=== PATIENT | female | born 1930 | race Caucasian/White ===

== ENCOUNTER 2018-08-27 21:22 | Observation (INO) | payer OTHER, MEDICARE ==
--- NOTE | 2018-08-27 21:26 | PDOC ---
Rapid Medical Evaluation Time Seen by Provider: 08/27/18 21:24 Medical Evaluation: Allergies Allergy/AdvReac Type Severity Reaction Status Date / Time Penicillins Allergy Hives Verified 12/09/14 06:21 08/27/18 21:25 I have performed a brief in-person evaluation of this patient. The patient presents with a chief complaint of: SOB with nausea Pertinent physical exam findings: Scattered wheezes. Pale appearing I have ordered the following: cardiac w/u The patient will proceed to the ED for further evaluation. Discharge Disposition - Diagnosis SOB (shortness of breath) - Referrals - Patient Instructions - Post Discharge Activity
--- NOTE | 2018-08-27 21:57 | PDOC ---
History of Present Illness - General Chief Complaint: Asthma Stated Complaint: ASTHMA SOB Time Seen by Provider: 08/27/18 21:24 - History of Present Illness Initial Comments: 08/27/18 21:57 Ms. Ryan is an 88 yo female w/ pmh of HTN, HLD, asthma, COPD, and Sjogren 's who presents for evaluation of shortness of breath today. Patient reports her asthma has been well controlled for years until the last few months and she has required her rescue inhaler. Patient does not have a breathing machine at home. Patient reports she was short of breath for 2 hours before calling son earlier today and coming to ER for further treatment. Patient is feeling improved at this time following single duoneb. The patient denies chest pain, headache and dizziness. Denies fever, chills, nausea, vomit, diarrhea and constipation. Denies dysuria, frequency, urgency and hematuria. Past History - Past Medical History Allergies/Adverse Reactions: Allergies Allergy/AdvReac Type Severity Reaction Status Date / Time Penicillins Allergy Hives Verified 08/27/18 21:57 Home Medications: Ambulatory Orders Amlodipine Besylate [Norvasc -] 5 mg PO DAILY 12/09/14 Aspirin [ASA -] 81 mg PO DAILY 12/09/14 Lansoprazole [Prevacid -] 30 mg PO DAILY 12/09/14 Levothyroxine [Synthroid -] 100 mcg PO DAILY 12/09/14 Lisinopril [Prinivil] 20 mg PO DAILY 12/09/14 Nebivolol [Bystolic -] 10 mg PO DAILY 12/09/14 Paroxetine HCl [Paxil -] 10 mg PO DAILY 12/09/14 levoFLOXacin [Levaquin -] 250 mg PO DAILY #4 tablet 12/11/14 Anemia: Yes Asthma: Yes Cancer: No Cardiac Disorders: Yes CVA: No COPD: Yes CHF: No Dementia: No Diabetes: No GI Disorders: No HTN: Yes Hypercholesterolemia: Yes Seizures: No Thyroid Disease: Yes - Surgical History Abdominal Surgery: Yes (hernia repair) - Suicide/Smoking/Psychosocial Hx Smoking Status: No Smoking History: Never smoked Have you smoked in the past 12 months: No Number of Cigarettes Smoked Daily: 0 Information on smoking cessation initiated: No Hx Alcohol Use: No Drug/Substance Use Hx: No Substance Use Type: None Review of Systems - Review of Systems Comments:: 08/27/18 21:58 GENERAL/CONSTITUTIONAL: No fever or chills. No weakness. HEAD, EYES, EARS, NOSE AND THROAT: No change in vision. No ear pain or discharge. No sore throat. CARDIOVASCULAR: No chest pain RESPIRATORY: +Shortness of breath as described. No cough, wheezing, or hemoptysis. GASTROINTESTINAL: No nausea, vomiting, diarrhea or constipation. GENITOURINARY: No dysuria, frequency, or change in urination. MUSCULOSKELETAL: No joint or muscle swelling or pain. No neck or back pain. SKIN: No rash NEUROLOGIC: No headache, vertigo, loss of consciousness, or change in strength/ sensation. ENDOCRINE: No increased thirst. No abnormal weight change HEMATOLOGIC/LYMPHATIC: No anemia, easy bleeding, or history of blood clots. ALLERGIC/IMMUNOLOGIC: No hives or skin allergy. *Physical Exam - Vital Signs Last Vital Signs Temp Pulse Resp BP Pulse Ox 98.5 F 110 H 27 H 159/92 89 L 08/27/18 21:22 08/27/18 21:22 08/27/18 21:22 08/27/18 21:22 08/27/18 21:22 - Physical Exam Comments: 08/27/18 21:59 GENERAL: Awake, alert, and fully oriented, in no acute distress HEAD: No signs of trauma, normocephalic, atraumatic EYES: PERRLA, EOMI, sclera anicteric, conjunctiva clear ENT: Auricles normal inspection, hearing grossly normal, nares patent, oropharynx clear without exudates. Moist mucosa NECK: Normal ROM, supple, no lymphadenopathy, JVD, or masses LUNGS: +Patient receiving duoneb treatment. Diffuse wheezes appreciated throughout lung mondragon. No distress, speaks full sentences HEART: Regular rate and rhythm, normal S1 and S2, no murmurs, rubs or gallops, peripheral pulses normal and equal bilaterally. ABDOMEN: Soft, nontender, normoactive bowel sounds. No guarding, no rebound. No masses EXTREMITIES: Normal inspection, Normal range of motion, no edema. No clubbing or cyanosis. NEUROLOGICAL: Cranial nerves II through XII grossly intact. Normal speech, normal gait, no focal sensorimotor deficits SKIN: Warm, Dry, normal turgor, no rashes or lesions noted. ED Treatment Course - LABORATORY CBC & Chemistry Diagram: 08/27/18 22:31 08/27/18 22:31 Medical Decision Making - Medical Decision Making 08/27/18 23:29 Ms. Ryan is an 88 yo female w/ pmh as described who presents for evaluation of shortness of breath. Patient does not have nebulizer at home. Improved at this time. Workup as below grossly wnl. CXR negative. EKG negative. Patient will be observed overnight in hospital. Laboratory Results - last 24 hr 08/27/18 08/27/18 08/27/18 22:31 22:31 22:31 WBC 6.3 RBC 3.40 L Hgb 11.2 Hct 33.0 MCV 97.2 H MCH 33.1 MCHC 34.0 RDW 13.1 Plt Count 123 L D MPV 9.4 Absolute Neuts (auto) 4.6 Neutrophils % 73.8 D Lymphocytes % 10.7 D Monocytes % 7.8 Eosinophils % 7.5 H Basophils % 0.2 Nucleated RBC % 0 PT with INR 11.90 INR 1.01 Sodium 139 Potassium 4.8 Chloride 104 Carbon Dioxide 30 Anion Gap 5 L BUN 20 H Creatinine 0.7 Creat Clearance w eGFR 78.79 Random Glucose 137 H Lactic Acid Calcium 8.4 L Magnesium 2.2 Total Bilirubin 0.4 AST 25 ALT 23 Alkaline Phosphatase 108 Creatine Kinase 73 Troponin I < 0.02 Total Protein 7.4 Albumin 3.4 08/27/18 22:31 WBC RBC Hgb Hct MCV MCH MCHC RDW Plt Count MPV Absolute Neuts (auto) Neutrophils % Lymphocytes % Monocytes % Eosinophils % Basophils % Nucleated RBC % PT with INR INR Sodium Potassium Chloride Carbon Dioxide Anion Gap BUN Creatinine Creat Clearance w eGFR Random Glucose Lactic Acid 1.3 Calcium Magnesium Total Bilirubin AST ALT Alkaline Phosphatase Creatine Kinase Troponin I Total Protein Albumin *DC/Admit/Observation/Transfer Diagnosis at time of Disposition: SOB (shortness of breath) Asthma exacerbation Qualifiers: Asthma severity: unspecified severity Asthma persistence: unspecified Qualified Code(s): J45.901 - Unspecified asthma with (acute) exacerbation - Discharge Dispostion Condition at time of disposition: Guarded Decision to Admit order: Yes - Referrals Referrals: Julita Sewell MD [Primary Care Provider] - - Patient Instructions - Post Discharge Activity
[2018-08-27] MEDS ORDERED: ALBUTEROL SO4 2.5/IPRATROPIUM 0.5 INH SOL 3 ML VIAL.NEB. NEB ONE ×3 (22:12→23:43)
[2018-08-27 22:43] LABS: BASO % 0.2 % (0-2.0); EOS % 7.5 % (0-4.5); HEMOGLOBIN 11.2 GM/dL (10.7-15.3); LYMPH % 10.7 % (8-40); MCH 33.1 pg (25.7-33.7); MEAN CELL VOLUME 97.2 fl (80-96); MEAN PLT VOLUME 9.4 fl (7.5-11.1); MONO % 7.8 % (3.8-10.2); NEUT % 73.8 % (42.8-82.8); PLATELET COUNT 123 K/MM3 (134-434); RDW 13.1 % (11.6-15.6); WHITE BLOOD COUNT 6.3 K/mm3 (4.0-10.0)
[2018-08-27 22:56] LABS: INR 1.01 (0.83-1.09); PROTHROMBIN TIME (PATIENT) 11.9 SEC (9.7-13.0)
[2018-08-27 23:05] LABS: ALBUMIN 3.4 g/dl (3.4-5.0); ALK PHOS 108 U/L (45-117); ANION GAP 5 MMOL/L (8-16); BILIRUBIN,TOTAL 0.4 mg/dL (0.2-1); BLOOD UREA NITROGEN 20 mg/dL (7-18); CALCIUM 8.4 mg/dL (8.5-10.1); CHLORIDE 104 mmol/L (98-107); CO2 30 mmol/L (21-32); CREATININE 0.7 mg/dL (0.55-1.3); GLUCOSE,RANDOM 137 mg/dL (74-106); MAGNESIUM 2.2 mg/dL (1.8-2.4); POTASSIUM 4.8 mmol/L (3.5-5.1); SGOT/AST 25 U/L (15-37); SGPT/ALT 23 U/L (13-61); SODIUM 139 mmol/L (136-145); TOT PROT 7.4 g/dl (6.4-8.2)
--- NOTE | 2018-08-27 23:30 | PDOC ---
Attending Attestation - Resident Resident Name: Lefty Avilaorn - ED Attending Attestation I have performed the following: I have examined & evaluated the patient, The case was reviewed & discussed with the resident, I agree w/resident's findings & plan, Exceptions are as noted - HPI HPI: 08/27/18 23:30 88-year-old female presents with expiratory wheezing and increased work of breathing. She has a history of asthma - Physicial Exam PE: 08/27/18 23:30 Cachectic 88-year-old female was receiving a DuoNeb treatment who has increased use of resp muscles Head normocephalic/atraumatic. Neck supple Lungs scattered expiratory wheezing in all lung mondragon cvs rrr s1s2 abd flat,nontender extremities no edema no cva tenderness skin warm and dry neuro axox3,moving all extremities psych sl anxious - Medical Decision Making 08/27/18 23:39 pt arrived with decreased breath sounds,diffuse scattered wheezing and , increased work of breathing cxr increased perihilar lung markings labd are unremarkab;e imp asthma exacerbation/needs supplemental o2/resp treatments admit med/surg 08/27/18 23:42
[2018-08-27] MEDS ORDERED: methylPREDNISolone NA SUCC 125 MG/2 ML VIAL IVPUSH SCH (23:45)
[2018-08-27] MEDS ORDERED: methylPREDNISolone NA SUCC 125 MG/2 ML VIAL IVPB ONE (23:49)
--- NOTE | 2018-08-27 23:56 | HP ---
CHIEF COMPLAINT: shortness of breath and scattered expiratory wheezing PCP:Dr.Pushpinder Sewell HISTORY OF PRESENT ILLNESS: 88 year old female with history of hypertension(on medications), hyperlipidemia , Sjogren's syndrome, hypothyroidism and asthma(reported no recent acute asthma exacerbations or hospitalizations over the past several years however worsening shortness of breath over the past few days and has been using rescue inhaler at home) who presented with shortness of breath and expiratory wheezing. On arrival pulse rate was 110 and oxygen saturation 89% which has improved after administration of duo nebulizers.CXR showed increased perihilar lung markings. On my clinical examination she continued to have expiratory wheezing and she was given one dosage of IV solumedrol and duonebulizer . Oxygen saturation has improved and ranging between 97-100% on oxygen therapy 2 L nc and heart rate is in the 90's. She reports she is moderately active at home and she denies recent travel. She denies fever, chest pain ,hemoptysis, leg swelling,weight gain or orthopnea. She is being admitted to observation for monitoring. Recent Travel: denies PAST MEDICAL HISTORY: hypertension hyperlipidemia hypothyroidism Sjogren's syndrome asthma PAST SURGICAL HISTORY: denies Social History: Smoking:denies Alcohol:denies Drugs: denies Family History: noncontributory Allergies Penicillins Allergy (Verified 08/27/18 21:57) Hives HOME MEDICATIONS: Home Medications Medication Instructions Recorded Amlodipine Besylate [Norvasc -] 5 mg PO DAILY 12/09/14 Aspirin [ASA -] 81 mg PO DAILY 12/09/14 Lansoprazole [Prevacid -] 30 mg PO DAILY 12/09/14 Levothyroxine [Synthroid -] 100 mcg PO DAILY 12/09/14 Lisinopril [Prinivil] 20 mg PO DAILY 12/09/14 Nebivolol [Bystolic -] 10 mg PO DAILY 12/09/14 Paroxetine HCl [Paxil -] 10 mg PO DAILY 12/09/14 levoFLOXacin [Levaquin -] 250 mg PO DAILY #4 tablet 12/11/14 REVIEW OF SYSTEMS CONSTITUTIONAL: Absent: fever, chills, diaphoresis, generalized weakness, malaise, loss of appetite, weight change HEENT: Absent: rhinorrhea, nasal congestion, throat pain, throat swelling, difficulty swallowing, mouth swelling, ear pain, eye pain, visual changes CARDIOVASCULAR: Absent: chest pain, syncope, palpitations, irregular heart rate, lightheadedness , peripheral edema RESPIRATORY: Absent: cough, shortness of breath, dyspnea with exertion, orthopnea, wheezing, stridor, hemoptysis GASTROINTESTINAL: Absent: abdominal pain, abdominal distension, nausea, vomiting, diarrhea, constipation, melena, hematochezia GENITOURINARY: Absent: dysuria, frequency, urgency, hesitancy, hematuria, flank pain, genital pain MUSCULOSKELETAL: Absent: myalgia, arthralgia, joint swelling, back pain, neck pain SKIN: Absent: rash, itching, pallor HEMATOLOGIC/IMMUNOLOGIC: Absent: easy bleeding, easy bruising, lymphadenopathy, frequent infections ENDOCRINE: Absent: unexplained weight gain, unexplained weight loss, heat intolerance, cold intolerance NEUROLOGIC: Absent: headache, focal weakness or paresthesias, dizziness, unsteady gait, seizure, mental status changes, bladder or bowel incontinence PSYCHIATRIC: Absent: anxiety, depression, suicidal or homicidal ideation, hallucinations. PHYSICAL EXAMINATION Vital Signs - 24 hr 08/27/18 21:22 Temperature 98.5 F Pulse Rate 110 H Respiratory 27 H Rate Blood Pressure 159/92 O2 Sat by Pulse 89 L Oximetry (%) GENERAL: awake, alert, and fully oriented HEAD: normal EYES: pupils equal, round and reactive to light EARS, NOSE, THROAT: ears normal, nares patent NECK: normal range of motion, supple LUNGS: +wheezing to auscultation no accessory muscle use nonlabored breathing effort HEART: regular rate and rhythm normal S1 and S2 ABDOMEN: soft, nontender not distended normoactive bowel sounds MUSCULOSKELETAL: normal range of motion at all joints no bony deformities or tenderness UPPER EXTREMITIES: 2+ pulses warm well-perfused nail beds pink with good cap refill LOWER EXTREMITIES: 2+ pulses warm well-perfused no pitting edema NEUROLOGICAL: normal speech PSYCHIATRIC: cooperative good eye contact SKIN: warm dry good skin turgor no rashes or lesions present nail beds and lips pink w/good cap refill 08/27/18 08/27/18 08/27/18 22:31 22:31 22:31 WBC 6.3 RBC 3.40 L Hgb 11.2 Hct 33.0 MCV 97.2 H MCH 33.1 MCHC 34.0 RDW 13.1 Plt Count 123 L D MPV 9.4 Absolute Neuts (auto) 4.6 Neutrophils % 73.8 D Lymphocytes % 10.7 D Monocytes % 7.8 Eosinophils % 7.5 H Basophils % 0.2 Nucleated RBC % 0 PT with INR 11.90 INR 1.01 Sodium 139 Potassium 4.8 Chloride 104 Carbon Dioxide 30 Anion Gap 5 L BUN 20 H Creatinine 0.7 Creat Clearance w eGFR 78.79 Random Glucose 137 H Lactic Acid Calcium 8.4 L Magnesium 2.2 Total Bilirubin 0.4 AST 25 ALT 23 Alkaline Phosphatase 108 Creatine Kinase 73 Troponin I < 0.02 Total Protein 7.4 Albumin 3.4 08/27/18 22:31 WBC RBC Hgb Hct MCV MCH MCHC RDW Plt Count MPV Absolute Neuts (auto) Neutrophils % Lymphocytes % Monocytes % Eosinophils % Basophils % Nucleated RBC % PT with INR INR Sodium Potassium Chloride Carbon Dioxide Anion Gap BUN Creatinine Creat Clearance w eGFR Random Glucose Lactic Acid 1.3 Calcium Magnesium Total Bilirubin AST ALT Alkaline Phosphatase Creatine Kinase Troponin I Total Protein Albumin ASSESSMENT/PLAN: Mrs. Ryan is an 88 year old female with history of hypertension(on medications), hyperlipidemia, hypothyroidism, Sjogren's syndrome and asthma who has been taking rescue inhalers at home due to shortness of breath lately however no acute asthma exacerbations for several years as per her family. She presented with symptoms of shortness of breath and wheezing and findings consistent with an acute asthma exacerbation. #1 Acute Asthma Exacerbation Initially she was tachycardic and hypoxic on presentation, improved with duo neb and IV methylprednisolone. Oxygen saturations now between 97-100% on 2 L by nc and heart rates 90's. No evidence of leukocytosis, afebrile. CXR with no infiltrate or pleural effusion. She is euvolemic on exam. Troponin, hgb/hct are wnl. Continue with albuterol nebulizer treatments every 6 hours. Continue with IV methyprednisolone . If develops tachycardia/hypoxemia would exclude PE. Will check D-Dimer. Pulmonary consulted -Dr. iRce. #2 Hypertension Borderline elevated. Continue with bystolic,lisinopril amd amlodipine. No signs of congestive heart failure on clinical exam. #3 Hx Hyperlipidemia Not on statin therapy on review of home medical regimen. #4 Hypothyroidism Continue synthroid. DVT Prophylaxsis Added lovenox 30 mg once daily for DVT prophylaxsis. FEN low sodium diet Visit type - Emergency Visit Emergency Visit: Yes ED Registration Date: 08/27/18 Care time: The patient presented to the Emergency Department on the above date and was hospitalized for further evaluation of their emergent condition. - New Patient This patient is new to me today: Yes Date on this admission: 08/28/18 - Critical Care Critical Care patient: No
[2018-08-28] MEDS ORDERED: methylPREDNISolone NA SUCC 125 MG/2 ML VIAL ONE (00:04)
[2018-08-28 05:30] LABS: HEMOGLOBIN 11.2 GM/dL (10.7-15.3); MCH 32.7 pg (25.7-33.7); MEAN CELL VOLUME 96.1 fl (80-96); MEAN PLT VOLUME 9.2 fl (7.5-11.1); PLATELET COUNT 115 K/MM3 (134-434); RBC 3.43 M/mm3 (3.60-5.2); RDW 13.2 % (11.6-15.6); WHITE BLOOD COUNT 4.3 K/mm3 (4.0-10.0)
[2018-08-28 05:55] LABS: ANION GAP 4 MMOL/L (8-16); BLOOD UREA NITROGEN 20 mg/dL (7-18); CALCIUM 8.4 mg/dL (8.5-10.1); CHLORIDE 104 mmol/L (98-107); CO2 29 mmol/L (21-32); CREATININE 0.7 mg/dL (0.55-1.3); GLUCOSE,RANDOM 147 mg/dL (74-106); SODIUM 136 mmol/L (136-145)
[2018-08-28] MEDS: LEVOTHYROXINE NA 100 MCG TABLET (FP) PO SCH (07:19)
[2018-08-28] MEDS: ALBUTEROL SO4 0.083% IH SOL 2.5 MG/3 ML VIAL.NEB. NEB SCH ×2 (07:50→11:40)
[2018-08-28] MEDS ORDERED: PT OWN MED DRAWER 7, Y5N ONE ×2 (09:05→15:20)
[2018-08-28] MEDS: ENOXAPARIN NA (PORCINE) 30 MG/0.3 ML DISP.SYRIN SQ SCH (09:16)
[2018-08-28] MEDS: ASPIRIN 81 MG CHEWABLE TABLETS PO SCH (09:16)
[2018-08-28] MEDS: PARoxetine HCL 10 MG TABLET (FP) PO SCH (09:16)
[2018-08-28] MEDS: amLODIPine BESYLATE 5 MG TABLET (FP) PO SCH (09:16)
[2018-08-28] MEDS: PANTOPRAZOLE 40 MG TABLET (FP) PO SCH (09:16)
[2018-08-28] MEDS ORDERED: methylPREDNISolone NA SUCC 40 MG/1 ML VIAL IVPUSH SCH (10:00)
--- NOTE | 2018-08-28 10:32 | PN ---
Progress Note (short form) - Note Progress Note: no distress Feels better No chest pain , dizziness No SOB Coughing+ Vital Signs - 24 hr 08/27/18 08/27/18 08/28/18 21:22 22:38 00:14 Temperature 98.5 F Pulse Rate 110 H Pulse Rate [ 96 H Apical] Respiratory 27 H 17 Rate Blood Pressure 159/92 Blood Pressure 148/69 [Right Arm] O2 Sat by Pulse 89 L 97 98 Oximetry (%) 08/28/18 04:23 Temperature Pulse Rate Pulse Rate [ 99 H Apical] Respiratory 17 Rate Blood Pressure Blood Pressure 158/82 [Right Arm] O2 Sat by Pulse 97 Oximetry (%) Current Medications Generic Name Dose Route Start Last Admin Trade Name Freq PRN Reason Stop Dose Admin Albuterol Sulfate 1 amp 08/28/18 08:00 Ventolin 0.083% Nebulizer Soln - NEB RQID STEPHANIE Amlodipine Besylate 5 mg 08/28/18 10:00 08/28/18 09:16 Norvasc - PO 5 mg DAILY STEPHANIE Administration Aspirin 81 mg 08/28/18 10:00 08/28/18 09:16 Asa - PO 81 mg DAILY STEPHANIE Administration Enoxaparin Sodium 30 mg 08/28/18 10:00 08/28/18 09:16 Lovenox - SQ 30 mg DAILY STEPHANIE Administration Levothyroxine Sodium 100 mcg 08/28/18 07:00 08/28/18 07:19 Synthroid - PO 100 mcg DAILY@0700 STEPHANIE Administration Methylprednisolone Sodium Succinate 40 mg 08/28/18 10:00 08/28/18 09:16 Solu-Medrol - IVPUSH 40 mg DAILY STEPHANIE Administration Nebivolol 10 mg 08/28/18 10:00 Bystolic - PO DAILY STEPHANIE Pantoprazole Sodium 40 mg 08/28/18 10:00 08/28/18 09:16 Protonix - PO 40 mg DAILY STEPHANIE Administration Paroxetine HCl 10 mg 08/28/18 10:00 08/28/18 09:16 Paxil - PO 10 mg DAILY STEPHANIE Administration Laboratory Results - last 24 hr 08/27/18 08/27/18 08/27/18 22:31 22:31 22:31 WBC 6.3 RBC 3.40 L Hgb 11.2 Hct 33.0 MCV 97.2 H MCH 33.1 MCHC 34.0 RDW 13.1 Plt Count 123 L D MPV 9.4 Absolute Neuts (auto) 4.6 Neutrophils % 73.8 D Lymphocytes % 10.7 D Monocytes % 7.8 Eosinophils % 7.5 H Basophils % 0.2 Nucleated RBC % 0 PT with INR 11.90 INR 1.01 D-Dimer Sodium 139 Potassium 4.8 Chloride 104 Carbon Dioxide 30 Anion Gap 5 L BUN 20 H Creatinine 0.7 Creat Clearance w eGFR 78.79 Random Glucose 137 H Lactic Acid Calcium 8.4 L Magnesium 2.2 Total Bilirubin 0.4 AST 25 ALT 23 Alkaline Phosphatase 108 Creatine Kinase 73 Troponin I < 0.02 Total Protein 7.4 Albumin 3.4 08/27/18 08/28/18 08/28/18 22:31 05:15 05:15 WBC 4.3 RBC 3.43 L Hgb 11.2 Hct 33.0 MCV 96.1 H MCH 32.7 MCHC 34.0 RDW 13.2 Plt Count 115 L MPV 9.2 Absolute Neuts (auto) Neutrophils % Lymphocytes % Monocytes % Eosinophils % Basophils % Nucleated RBC % PT with INR INR D-Dimer Sodium 136 Potassium 4.0 Chloride 104 Carbon Dioxide 29 Anion Gap 4 L BUN 20 H Creatinine 0.7 Creat Clearance w eGFR 78.79 Random Glucose 147 H Lactic Acid 1.3 Calcium 8.4 L Magnesium Total Bilirubin AST ALT Alkaline Phosphatase Creatine Kinase Troponin I Total Protein Albumin 08/28/18 05:15 WBC RBC Hgb Hct MCV MCH MCHC RDW Plt Count MPV Absolute Neuts (auto) Neutrophils % Lymphocytes % Monocytes % Eosinophils % Basophils % Nucleated RBC % PT with INR INR D-Dimer 992 H Sodium Potassium Chloride Carbon Dioxide Anion Gap BUN Creatinine Creat Clearance w eGFR Random Glucose Lactic Acid Calcium Magnesium Total Bilirubin AST ALT Alkaline Phosphatase Creatine Kinase Troponin I Total Protein Albumin S1 S2 RRR Lungs scattere ronchi B/L Abd -soft, Nt no edema PLAN continue with solumedrol Nebs Check pre and post O2 sat ambulation continue with meds Problem List - Problems (1) Asthma exacerbation Code(s): J45.901 - UNSPECIFIED ASTHMA WITH (ACUTE) EXACERBATION Qualifiers: Asthma severity: unspecified severity Asthma persistence: unspecified Qualified Code(s): J45.901 - Unspecified asthma with (acute) exacerbation (2) SOB (shortness of breath) Code(s): R06.02 - SHORTNESS OF BREATH (3) Bronchitis Code(s): J40 - BRONCHITIS, NOT SPECIFIED ACUTE OR CHRONIC (4) Cough Code(s): R05 - COUGH
--- NOTE | 2018-08-28 11:05 | EKG ---
Test Reason : Blood Pressure : / mmHG Vent. Rate : 105 BPM Atrial Rate : 105 BPM P-R Int : 196 ms QRS Dur : 070 ms QT Int : 316 ms P-R-T Axes : 086 036 058 degrees QTc Int : 417 ms POOR DATA QUALITY, INTERPRETATION MAY BE ADVERSELY AFFECTED SINUS TACHYCARDIA SEPTAL INFARCT (CITED ON OR BEFORE 10-APR-2012) ABNORMAL ECG WHEN COMPARED WITH ECG OF 09-DEC-2014 06:25, VENT. RATE HAS INCREASED BY 35 BPM Confirmed by LEANN SELLERS, AMBERLY ([id number]) on 08/28/2018 11:04:31 AM Referred By: Confirmed By:AMBERLY NORIEGA MD
--- NOTE | 2018-08-28 15:41 | CON.PULM ---
Consult Consult Specialty:: PULMONARY Referred by:: Dr Chaidez Reason for Consultation:: shortness of breath - History of Present Illness Chief Complaint: shortness of breath History of Present Illness: 88yo female with h/o HTN, hyperlipidemia, asthma, hypothyroidism, Sjogren's syndrome who was admitted with acute shortness of breath and wheezing. Denies chest pain or palpitations. No fevers, chills or sweats. Noted to hypoxic to 89 % on room air improved after nebulizer treatments and oxygen therapy. She is a never smoker, did have 2nd hand smoke exposure as a child. No occupational exposures. Maintained at home on ventolin as needed and she states that she feels improvement with the bronchodilators. - History Source History Provided By: Patient, Medical Record Limitations to Obtaining History: No Limitations - Past Medical History Cardio/Vascular: Yes: HTN, Hyperlipdemia Pulmonary: Yes: Asthma, COPD, Other (Schogren's) ...: No Psych: Yes: Anxiety - Alcohol/Substance Use Hx Alcohol Use: No - Smoking History Smoking history: Never smoked Have you smoked in the past 12 months: No Aproximately how many cigarettes per day: 0 Home Medications - Allergies Allergies/Adverse Reactions: Allergies Allergy/AdvReac Type Severity Reaction Status Date / Time Penicillins Allergy Hives Verified 08/27/18 21:57 - Home Medications Home Medications: Ambulatory Orders Amlodipine Besylate [Norvasc -] 5 mg PO DAILY 12/09/14 Aspirin [ASA -] 81 mg PO DAILY 12/09/14 Levothyroxine [Synthroid -] 100 mcg PO DAILY 12/09/14 Nebivolol [Bystolic -] 10 mg PO DAILY 12/09/14 Paroxetine HCl [Paxil -] 10 mg PO DAILY 12/09/14 Amlodipine Besylate 5 mg PO DAILY 02/20/16 Aspirin [ASA -] 81 mg PO DAILY 02/20/16 Lansoprazole [Prevacid] 30 mg PO DAILY 02/20/16 Levothyroxine [Synthroid -] 100 mcg PO DAILY 02/20/16 Lisinopril [Prinivil] 20 mg PO DAILY 02/20/16 Nebivolol [Bystolic -] 10 mg PO DAILY 02/20/16 Paroxetine HCl 40 mg PO DAILY 02/20/16 Simvastatin 20 mg PO DAILY 02/20/16 Pantoprazole Sodium [Protonix -] 40 mg PO DAILY 08/28/18 Review of Systems - Review of Systems Constitutional: denies: Chills, Fever, Weakness Eyes: denies: Recent Change in Vision HENT: denies: Nasal Congestion, Throat Pain Neck: denies: Stiffness, Tenderness Cardiovascular: reports: Shortness of Breath. denies: Chest Pain, Edema, Palpitations Respiratory: reports: Cough, SOB on Exertion, Wheezing. denies: Hemoptysis Gastrointestinal: denies: Abdominal Pain, Nausea, Vomiting Genitourinary: denies: Dysuria, Hematuria Neurological: denies: Dizziness, Headache Endocrine: denies: Unexplained Weight Loss Physical Exam Vital Sings: Vital Signs Temperature 98.8 F 08/28/18 08:48 Pulse Rate 101 H 08/28/18 13:18 Respiratory Rate 20 08/28/18 08:48 Blood Pressure 144/81 08/28/18 08:48 O2 Sat by Pulse Oximetry (%) 90 L 08/28/18 13:18 Constitutional: Yes: Calm Eyes: Yes: Conjunctiva Clear, EOM Intact HENT: Yes: Atraumatic, Normocephalic Neck: Yes: Supple, Trachea Midline Cardiovascular: Yes: Regular Rate and Rhythm Respiratory: Yes: Diminished (distant breath sounds), Wheezes (scattered) ...Clubbing: No Gastrointestinal: Yes: Normal Bowel Sounds, Soft. No: Tenderness Edema: No Neurological: Yes: Alert, Oriented Labs: CBC, BMP 08/28/18 05:15 08/28/18 05:15 Imaging - Results Chest X-ray: Report Reviewed, Image Reviewed (hyperinflated lungs) Problem List - Problems (1) COPD with acute exacerbation Code(s): J44.1 - CHRONIC OBSTRUCTIVE PULMONARY DISEASE W (ACUTE) EXACERBATION (2) Hypoxia Code(s): R09.02 - HYPOXEMIA Assessment/Plan Acute COPD Exacerbation Hypoxia from above HTN Hyperlipidemia Hypothyroidism Sjogren's Syndrome - short course of medrol - inhaled bronchodilators - O2 to keep SpO2 >90% - start symbicort - will need outpt PFTs - when ready for discharge, would keep on symbicort and add spiriva as outpt - DVT prophylaxis Thank you for this consult Lencho Benito MD
[2018-08-28] MEDS ORDERED: ALBUTEROL SO4 0.083% IH SOL 2.5 MG/3 ML VIAL.NEB. NEB PRN (15:42)
[2018-08-28] MEDS: NEBIVOLOL 10 MG TABLET (FP) PO SCH (15:45)
[2018-08-28] MEDS: ALBUTEROL SO4 2.5/IPRATROPIUM 0.5 INH SOL 3 ML VIAL.NEB. NEB SCH ×2 (16:23→20:16)
[2018-08-28 17:05] VITALS: BMI 13.6
[2018-08-28] MEDS: methylPREDNISolone NA SUCC 40 MG/1 ML VIAL IVPUSH SCH (17:46)
[2018-08-28] MEDS: BUDESONIDE/FORMETEROL FUMARATE 160/4.5 mcg INHALER IH SCH (21:23)
[2018-08-29] MEDS: methylPREDNISolone NA SUCC 40 MG/1 ML VIAL IVPUSH SCH ×2 (03:01→12:00)
[2018-08-29] MEDS: LEVOTHYROXINE NA 100 MCG TABLET (FP) PO SCH (06:32)
[2018-08-29] MEDS: ALBUTEROL SO4 2.5/IPRATROPIUM 0.5 INH SOL 3 ML VIAL.NEB. NEB SCH ×2 (07:42→11:21)
[2018-08-29] MEDS: ASPIRIN 81 MG CHEWABLE TABLETS PO SCH (09:18)
[2018-08-29] MEDS: PANTOPRAZOLE 40 MG TABLET (FP) PO SCH (09:18)
[2018-08-29] MEDS: NEBIVOLOL 10 MG TABLET (FP) PO SCH (09:18)
[2018-08-29] MEDS: amLODIPine BESYLATE 5 MG TABLET (FP) PO SCH (09:18)
[2018-08-29] MEDS: PARoxetine HCL 10 MG TABLET (FP) PO SCH (09:18)
[2018-08-29] MEDS: ENOXAPARIN NA (PORCINE) 30 MG/0.3 ML DISP.SYRIN SQ SCH (09:19)
[2018-08-29 09:23] VITALS: BP 136/63; TEMP 98.8
--- NOTE | 2018-08-29 10:23 | PN ---
Progress Note (short form) - Note Progress Note: PULMONARY Denies shortness of breath, cough or wheezing. States she feels at baseline. Vital Signs Period Temp Pulse Resp BP Sys/Obrien Pulse Ox Last 24 Hr 98.2 F-98.8 F 73-108 18-20 109-152/50-75 90 Gen: NAD at rest Heart: RRR Lung: scattered wheezes Abd: soft, nontender Ext: no edema CBC, BMP 08/28/18 05:15 08/28/18 05:15 Active Medications Albuterol Sulfate (Ventolin 0.083% Nebulizer Soln -) 1 amp NEB Q4H PRN PRN Reason: SHORT OF BREATH/WHEEZING Albuterol/Ipratropium (Duoneb -) 1 amp NEB RQID [facility] Last Admin: 08/29/18 07:42 Dose: 1 amp Amlodipine Besylate (Norvasc -) 5 mg PO DAILY [facility] Last Admin: 08/29/18 09:18 Dose: 5 mg Aspirin (Asa -) 81 mg PO DAILY [facility] Last Admin: 08/29/18 09:18 Dose: 81 mg Budesonide/Formoterol Fumarate (Symbicort 160/4.5mcg -) 2 puff IH BID [facility] Last Admin: 08/28/18 21:23 Dose: 2 puff Enoxaparin Sodium (Lovenox -) 30 mg SQ DAILY [facility] Last Admin: 08/29/18 09:19 Dose: 30 mg Levothyroxine Sodium (Synthroid -) 100 mcg PO DAILY@0700 [facility] Last Admin: 08/29/18 06:32 Dose: 100 mcg Methylprednisolone Sodium Succinate (Solu-Medrol -) 40 mg IVPUSH Q8H-IV [facility] Last Admin: 08/29/18 03:01 Dose: 40 mg Nebivolol (Bystolic -) 10 mg PO DAILY [facility] Last Admin: 08/29/18 09:18 Dose: 10 mg Pantoprazole Sodium (Protonix -) 40 mg PO DAILY [facility] Last Admin: 08/29/18 09:18 Dose: 40 mg Paroxetine HCl (Paxil -) 10 mg PO DAILY [facility] Last Admin: 08/29/18 09:18 Dose: 10 mg A/P Acute COPD Exacerbation Hypoxia from above HTN Hyperlipidemia Hypothyroidism Sjogren's Syndrome - can change steroids to PO prednisone 40mg daily and taper as outpt - inhaled bronchodilators - O2 to keep SpO2 >90% - would discharge on Symbicort and Spiriva until seen as outpt - will need outpt PFTs - DVT prophylaxis - recheck ambulatory SpO2 - can discharge home from pulmonary standpoint Problem List - Problems (1) COPD with acute exacerbation Code(s): J44.1 - CHRONIC OBSTRUCTIVE PULMONARY DISEASE W (ACUTE) EXACERBATION (2) Hypoxia Code(s): R09.02 - HYPOXEMIA
[2018-08-29 11:21] VITALS: PULSE 112
[2018-08-29] MEDS: BUDESONIDE/FORMETEROL FUMARATE 160/4.5 mcg INHALER IH SCH (12:00)
--- NOTE | 2018-08-29 12:04 | DS ---
Physical Examination Vital Signs: Vital Signs Temperature 98.8 F 08/29/18 09:22 Pulse Rate 112 H 08/29/18 11:20 Respiratory Rate 20 08/29/18 09:22 Blood Pressure 136/63 08/29/18 09:22 O2 Sat by Pulse Oximetry (%) 93 L 08/29/18 11:20 Constitutional: Yes: No Distress, Calm Cardiovascular: Yes: Regular Rate and Rhythm Respiratory: Yes: CTA Bilaterally Gastrointestinal: Yes: Normal Bowel Sounds, Soft. No: Tenderness Edema: No Labs: CBC, BMP 08/28/18 05:15 08/28/18 05:15 Discharge Summary Reason For Visit: EXACERBATION OF ASTHMA, SOB Current Active Problems Asthma exacerbation (Acute) COPD with acute exacerbation (Acute) Hypoxia (Acute) SOB (shortness of breath) (Acute) Hospital Course: Admitted for asthma exacerbation Pt was on IV Solumedrol , nebs Now better Seen by Pulmonary -- stable for dc home on po prednisone follow up with PMD in 2 weeks Condition: Improved - Instructions Disposition: HOME - Home Medications Comprehensive Discharge Medication List: Ambulatory Orders Amlodipine Besylate [Norvasc -] 5 mg PO DAILY 12/09/14 Aspirin [ASA -] 81 mg PO DAILY 12/09/14 Levothyroxine [Synthroid -] 100 mcg PO DAILY 12/09/14 Nebivolol [Bystolic -] 10 mg PO DAILY 12/09/14 Paroxetine HCl [Paxil -] 10 mg PO DAILY 12/09/14 Amlodipine Besylate 5 mg PO DAILY 02/20/16 Aspirin [ASA -] 81 mg PO DAILY 02/20/16 Lansoprazole [Prevacid] 30 mg PO DAILY 02/20/16 Levothyroxine [Synthroid -] 100 mcg PO DAILY 02/20/16 Lisinopril [Prinivil] 20 mg PO DAILY 02/20/16 Nebivolol [Bystolic -] 10 mg PO DAILY 02/20/16 Paroxetine HCl 40 mg PO DAILY 02/20/16 Simvastatin 20 mg PO DAILY 02/20/16 Pantoprazole Sodium [Protonix -] 40 mg PO DAILY 08/28/18
== END 2018-08-29 13:01 | disposition home health service (06) ==
LOC: JER 21:22 → JERBED 22:43 → J7W 08-28 06:56
PROVIDERS: ADMIT Internal Medicine; ATTEND Internal Medicine
PROC: 3E0333Z Introduction of Anti-inflammatory into Peripheral Vein, Percutaneous Approach (ICD-10-PCS; principal; 2018-08-27)
PROC: 3E013GC Introduction of Other Therapeutic Substance into Subcutaneous Tissue, Percutaneous Approach (ICD-10-PCS; 2018-08-27)
PROC: 3E0F7GC Introduction of Other Therapeutic Substance into Respiratory Tract, Via Natural or Artificial Opening (ICD-10-PCS; 2018-08-27)
DX: J45.901 Unspecified asthma with (acute) exacerbation (principal); J44.1 Chronic obstructive pulmonary disease with (acute) exacerbation; R09.02 Hypoxemia; I10 Essential (primary) hypertension; E78.5 Hyperlipidemia, unspecified; M35.00 Sjogren syndrome, unspecified; E03.9 Hypothyroidism, unspecified; Z79.82 Long term (current) use of aspirin; Z88.0 Allergy status to penicillin; R06.02 Shortness of breath
CPT/HCPCS: 36415; 71045-TC-FY; 80048; 80053; 82550; 83605; 83735; 84484; 85025; 85027; 85379; 85610; 87040; 93005; 93010; 94640; 94761; 96372; 96374; 96376; 99285-25; G0378

== ENCOUNTER 2019-03-23 11:54 | Emergency (ER) | payer OTHER, MEDICARE ==
[2019-03-23 12:04] VITALS: TEMP 99.3; BMI 15.0
--- NOTE | 2019-03-23 12:11 | PDOC ---
History of Present Illness - General Chief Complaint: Injury Stated Complaint: L SHOULDER DISLOCATE Time Seen by Provider: 03/23/19 12:10 History Source: Patient, Family Exam Limitations: No Limitations - History of Present Illness Initial Comments: 03/23/19 12:11 Apolonia Ryan is an 88F with PMH HTN, HLD, asthma, Sjogren's presenting with mechanical fall and pain to L shoulder. Patient says she was at home and turned too fast when walking in-between rooms, causing her to fall to ground about 2 hours [employer]. Per patient and son at bedside , was totally fine and healthy today, patient denies prodromal symptoms, denies LOC or seizure activity, remembers entire event. Says the she likely hit her head on the ground but denies MCKINNEY, changes to vision, pain in her face/head/ neck. Currently reports L shoulder and elbow pain, denies any other pain or injuries to her body. Has no history of bone disorders or prior injuries to L shoulder. No allergies to medications. Last ED visit for asthma exacerbation, breathing improved with nebulizer, has never smoked. Past History - Past Medical History Allergies/Adverse Reactions: Allergies Allergy/AdvReac Type Severity Reaction Status Date / Time Penicillins Allergy Hives Verified 08/27/18 21:57 Home Medications: Ambulatory Orders Amlodipine Besylate [Norvasc -] 5 mg PO DAILY 12/09/14 Aspirin [ASA -] 81 mg PO DAILY 12/09/14 Levothyroxine [Synthroid -] 100 mcg PO DAILY 12/09/14 Nebivolol [Bystolic -] 10 mg PO DAILY 12/09/14 Paroxetine HCl [Paxil -] 10 mg PO DAILY 12/09/14 Amlodipine Besylate 5 mg PO DAILY 02/20/16 Aspirin [ASA -] 81 mg PO DAILY 02/20/16 Lansoprazole [Prevacid] 30 mg PO DAILY 02/20/16 Levothyroxine [Synthroid -] 100 mcg PO DAILY 02/20/16 Lisinopril [Prinivil] 20 mg PO DAILY 02/20/16 Nebivolol [Bystolic -] 10 mg PO DAILY 02/20/16 Paroxetine HCl 40 mg PO DAILY 02/20/16 Simvastatin 20 mg PO DAILY 02/20/16 Pantoprazole Sodium [Protonix -] 40 mg PO DAILY 04/10/19 Prednisone See Taper PO ASDIR 7 Days tab.ds.pk 08/29/18 Oxycodone HCl/Acetaminophen [Percocet 5-325 mg Tablet -] 1 combo PO BID PRN #8 tablet MDD 2 03/23/19 Tramadol HCl 50 mg PO QID PRN #12 tablet MDD 4 03/23/19 Anemia: Yes Asthma: Yes Cancer: No Cardiac Disorders: Yes CVA: No COPD: Yes CHF: No Dementia: No Diabetes: No GI Disorders: No HTN: Yes Hypercholesterolemia: Yes Seizures: No Thyroid Disease: Yes (hypo) - Surgical History Abdominal Surgery: Yes (hernia repair) - Immunization History Immunization Up to Date: Yes - Psycho Social/Smoking Cessation Hx Smoking Status: No Smoking History: Never smoked Have you smoked in the past 12 months: No Number of Cigarettes Smoked Daily: 0 Hx Alcohol Use: No Drug/Substance Use Hx: No Substance Use Type: None Review of Systems - Review of Systems Able to Perform ROS?: Yes Constitutional: No: Symptoms Reported HEENTM: No: Blurred Vision, Recent change in vision, Ear Pain, Nose Bleeding, Throat Pain, Mouth Pain, Difficulty Swallowing Respiratory: No: Symptoms reported Cardiac (ROS): No: Symptoms Reported ABD/GI: No: Symptoms Reported : No: Symptoms Reported Musculoskeletal: Yes: Joint Pain (L shoulder), Muscle Pain (L arm). No: Muscle Weakness Integumentary: No: Bruising, Change in Color, Lesions, Rash Neurological: No: Headache, Numbness, Paresthesia, Seizure, Tingling, Tremors, Weakness, Unsteady Gait Endocrine: No: Symptoms Reported Hematologic/Lymphatic: No: Symptoms Reported All Other Systems: Reviewed and Negative *Physical Exam - Vital Signs Last Vital Signs Temp Pulse Resp BP Pulse Ox 99.3 F 92 H 20 152/55 L 97 03/23/19 11:58 03/23/19 11:58 03/23/19 11:58 03/23/19 11:58 03/23/19 11:58 - Physical Exam General Appearance: Yes: Appropriately Dressed, Thin. No: Apparent Distress HEENT: positive: EOMI, RAUL, Normal Voice, Symmetrical, Hearing Decreased. negative: Pharynx Normal (dry mouth and tongue), Scleral Icterus (R), Scleral Icterus (L), Muffled/Hoarse voice, Pharyngeal Erythema, Tonsillar Exudate, Tonsillar Erythema Neck: positive: Trachea midline, Normal Thyroid, Supple. negative: Tender, Rigid, Lymphadenopathy (R), Lymphadenopathy (L), Tender midline Respiratory/Chest: positive: Lungs Clear, Normal Breath Sounds. negative: Chest Tender, Respiratory Distress, Accessory Muscle Use, Crackles, Rales, Rhonchi, Stridor, Wheezing Cardiovascular: positive: Regular Rhythm, Regular Rate. negative: Edema, Murmur Gastrointestinal/Abdominal: positive: Normal Bowel Sounds, Flat, Soft. negative : Tender, Pulsatile Mass Musculoskeletal: positive: Normal Inspection. negative: CVA Tenderness Extremity: positive: Normal Capillary Refill, Normal Inspection, Tender (L shoulder), Other (RUE exam grossly normal. 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 negative: Normal Range of Motion (unable to ROM L shoulder and L elbow 2/2 pain), Cyanosis, Swelling Integumentary: positive: Normal Color, Dry, Warm Neurologic: positive: mosaic worker II-XII NML intact, Fully Oriented, Alert, Normal Mood/ Affect, Normal Response Medical Decision Making - Medical Decision Making 03/23/19 12:11 Apolonia Ryan is an 88F with PMH HTN, HLD, asthma, Sjogren's presenting with mechanical fall and pain to L shoulder. Patient presentation concerning for L shoulder dislocation vs. humeral fracture vs. MSK/rotator cuff injury. Patient fully alert and oriented and has good recall, able to stand and walk to phone to call for help, less likely fall 2/2 other disease process. Will evaluate for injury via: CT head/c-spine XR L shoulder/humerus/elbow 03/23/19 14:43 XR shows proximal humerus fracture. [facility] consulted ROMEO Tavarez recommends sling and f/u in office tomorrow between 8AM-10AM, no appointment needed for further evaluation. Rechecked BP before discharge, BP 88/42. Normally hypertensive, likely 2/2 morphine administration. Giving 500mg IV NS to fluid buffer before discharge. Advised family of need to fluids resuscitate before discharge. Discussed discharge instructions and pain management with Tylenol. 03/23/19 16:58 Repeat BP 123/80, stable to be discharged. Discharge - Discharge Information Problems reviewed: Yes Clinical Impression/Diagnosis: Fall Qualifiers: Encounter type: initial encounter Qualified Code(s): W19.XXXA - Unspecified fall, initial encounter Left shoulder pain Qualifiers: Chronicity: acute Qualified Code(s): M25.512 - Pain in left shoulder Proximal humerus fracture Qualifiers: Encounter type: initial encounter Fracture type: closed Fracture morphology: other fracture Fracture alignment: displaced Laterality: left Qualified Code(s) : S42.292A - Other displaced fracture of upper end of left humerus, initial encounter for closed fracture Condition: Stable Disposition: HOME - Additional Discharge Information Prescriptions: Oxycodone HCl/Acetaminophen [Percocet 5-325 mg Tablet -] 1 combo PO BID PRN #8 tablet MDD 2 PRN Reason: Pain Tramadol HCl 50 mg PO QID PRN #12 tablet MDD 4 PRN Reason: Pain - Follow up/Referral Referrals: Julita Sewell MD [Primary Care Provider] - Sim Dhaliwal MD [Staff Physician] - - Patient Discharge Instructions Patient Printed Discharge Instructions: Humeral Shaft Fracture Additional Instructions: Today you were evaluated for left shoulder pain. Your X-rays show: you have a broken bone in your left arm For pain control, please: take Tylenol as tolerated for pain, we are also prescribing We have consulted Dr. Portillo, an orthopedic surgeon, for your broken arm, and he recommends follow-up in office tomorrow between the hours of 8AM to 10PM for further management. We will be providing you with a splint to keep your arm from moving. If you have pain, please take Tylenol, Motrin. If and only if your pain is still uncontrollable, we have provided you with a medication called Tramadol to control your pain. Please follow-up with your primary doctor in the next 3 days for further care, and with Dr. Portillo tomorrow. If you experience numbness/tingling in your arm, nausea, vomiting, fever, become unable to walk, or have any other new or concerning symptoms, please return to the emergency room. - Post Discharge Activity
[2019-03-23] MEDS ORDERED: ACETAMINOPHEN 325 MG TABLET (FP) PO ONE (12:33)
[2019-03-23] MEDS ORDERED: ACETAMINOPHEN 325 MG TABLET (FP) ONE (12:59)
[2019-03-23] MEDS ORDERED: morphine CARPU-JECT 2 MG/1 ML DISP.SYRIN IVPUSH ONE (13:07)
[2019-03-23] MEDS ORDERED: MORPHINE SULFATE 2 MG/ML VIAL ONE (13:24)
--- NOTE | 2019-03-23 14:34 | PDOC ---
Documentation entered by Ezra Castillo SCRIBE, acting as scribe for Mohsen Lu MD. Mohsen Lu MD: This documentation has been prepared by the Jonathan lorenazna Daniel, SCRIBE, under my direction and personally reviewed by me in its entirety. I confirm that the documentation accurately reflects all work, treatment, procedures, and medical decision making performed by me. Attending Attestation - Resident Resident Name: [email or web address] - ED Attending Attestation I have performed the following: I have examined & evaluated the patient, The case was reviewed & discussed with the resident, I agree w/resident's findings & plan, Exceptions are as noted - HPI HPI: 03/23/19 12:29 The patient is an 88 year old female with a past medical history of HTN and asthma here today for evaluation s/p fall. The patient reports that she outside today around 10 AM when she turned too fast and fell. She states that she landed on her left side, denies any loss of consciousness, and states that she did not think she hit her head. She dneis any headache, neck pain, vision changes, numbness/tingling/ewakness. She states that she got herself up and called her son. Patient currently has left arm and shoulder pain. Patient denies headache, lightheadedness. Denies fever, chills. Denies chest pain, shortness of breath. Denies nausea, vomiting, diarrhea, abdominal pain. Allergies: penicillins PCP: Julita Sewell - Physicial Exam PE: 03/23/19 13:40 GENERAL: The patient is awake, alert, and fully oriented, Nontoxic - in no acute distress. HEAD: Normocephalic, atraumatic. EYES: extraocular movements intact, sclera anicteric, conjunctiva clear. ENT: Normal voice, Moist mucous membranes. NECK: Normal range of motion, supple, no focal bony tenderness LUNGS: Breath sounds equal, clear to auscultation bilaterally. No wheezes, no rhonchi, no rales. HEART: Regular rate and rhythm, ABDOMEN: Soft, nontender, No guarding, no rebound. No CVA tenderness EXTREMITIES: Normal range of motion, of al extremities except for L shoulder, radial pulses symmetric sensation intact and symmetric, mild diffuse tenderess and swelling to the l anterior shoulder with ecchomosis. NEUROLOGICAL: No facial assymetry, Normal speech, moving all 4 extremities spontneously and symmetrically PSYCH: Normal mood, normal affect. SKIN: Warm, Dry, normal turgor, - Medical Decision Making 03/23/19 13:44 suspect possible humerus fx vs dislocation ronda place iv, pain meds xray will reassess 03/23/19 14:31 xray suggestive of humeral head fracture, ?anterior dislocation on Y view? will discuss with ortho 03/23/19 15:13 There is no dislocation case was discussed with orthopedics patient was placed in a sling we will have her follow-up with orthopedics as an outpatient Return precautions were discussed Heart Score/ECG Review - ECG Impressions Comment:: 03/23/19 14:34 Twelve-lead EKG was performed and reviewed by me. There is normal sinus rhythm with a normal rate. Rate of 64 PVCs present Abnormal R wave progression
[2019-03-23 17:22] VITALS: BP 123/62; PULSE 68
--- NOTE | 2019-03-24 10:07 | EKG ---
Test Reason : Blood Pressure : / mmHG Vent. Rate : 064 BPM Atrial Rate : 064 BPM P-R Int : 198 ms QRS Dur : 070 ms QT Int : 432 ms P-R-T Axes : 061 054 060 degrees QTc Int : 445 ms SINUS RHYTHM BASELINE ARTIFACT LOW VOLTAGE QRS CANNOT RULE OUT SEPTAL INFARCT (CITED ON OR BEFORE 10-APR-2012) ABNORMAL ECG WHEN COMPARED WITH ECG OF 27-AUG-2018 21:31, VENT. RATE HAS DECREASED VENT. RATE HAS DECREASED BY 41 BPM Confirmed by ALVIN MCCOY MD ([id number]) on 03/24/2019 10:06:40 AM Referred By: Confirmed By:ALVIN MCCOY MD
== END 2019-03-23 17:00 | disposition home or self-care (01) ==
LOC: JER 11:54
PROC: 3E033NZ Introduction of Analgesics, Hypnotics, Sedatives into Peripheral Vein, Percutaneous Approach (ICD-10-PCS; principal; 2019-03-23)
DX: S42.292A Other displaced fracture of upper end of left humerus, initial encounter for closed fracture (principal); Y92.018 Other place in single-family (private) house as the place of occurrence of the external cause; W18.39XA Other fall on same level, initial encounter; Y93.89 Activity, other specified; Y99.8 Other external cause status; I10 Essential (primary) hypertension; E78.00 Pure hypercholesterolemia, unspecified; E03.9 Hypothyroidism, unspecified; J45.998 Other asthma; D64.9 Anemia, unspecified; J44.9 Chronic obstructive pulmonary disease, unspecified; M35.00 Sjogren syndrome, unspecified; Z88.0 Allergy status to penicillin
CPT/HCPCS: 73030-TC-LT-FY; 73060-TC-LT-FY; 73070-TC-LT-FY; 93005; 93010; 96374; 99283-25